=== PATIENT | male | born 1955 | race Caucasian/White ===

== ENCOUNTER → 2016-06-16 | Outpatient (CLI) | payer MEDICAID | LOC: FIMAGING 07:04 | PROVIDERS: ATTEND Internal Medicine | DX: K80.20 Calculus of gallbladder without cholecystitis without obstruction (principal); K76.0 Fatty (change of) liver, not elsewhere classified; B18.2 Chronic viral hepatitis C ==

== ENCOUNTER → 2016-06-28 | Outpatient (CLI) | payer MEDICAID | LOC: FIMAGING 10:58 | DX: S22.42XA Multiple fractures of ribs, left side, initial encounter for closed fracture (principal) ==

== ENCOUNTER 2017-01-23 03:55 | Observation (INO) | payer MEDICAID ==
[2017-01-23] MEDS ORDERED: NS 1,000 ML IV ONE ×2 (04:15→05:28)
--- NOTE | 2017-01-23 04:15 | EDPHY ---
H & P Stated Complaint: recent colonoscopy, last pm pt began having bloody stool HPI/ROS: HPI CHIEF COMPLAINT: Bright red blood per rectum, abdominal pain, also colitis HISTORY OF PRESENT ILLNESS: This patient is a 61-year-old male presents emergency room bright red blood per rectum since around 5:30 p.m. last night. Patient states that he had multiple episodes of bright red blood per rectum. Additionally some abdominal cramping but no severe pain. He has a history of ulcer colitis. Reports to me that he thinks on January 17 he had a colonoscopy with multiple polyps removed. Additionally it showed inflammation consistent also colitis and ulcers. Denies any vomiting of blood or fever. He has not had any bowel resection. Decided come the emergency room as he had persistent bright red blood per rectum. He also reports dark clots. States that He "Lost a gallon of blood" Past Medical History: Ulcerative colitis, rib fractures on the left Past Surgical History: Hernia repair, shoulder surgery Social History: Denies daily use of drugs alcohol tobacco products. 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 Exam Constitutional appears nontoxic, otherwise well, triage nursing summary reviewed, vital signs reviewed, awake/alert. Eyes normal conjunctivae and sclera, EOMI, PERRLA. HENT normal inspection, atraumatic, moist mucus membranes, no epistaxis, neck supple/ no meningismus, no raccoon eyes. Respiratory clear to auscultation bilaterally, normal breath sounds, no respiratory distress, no wheezing. Cardiovascular rate normal, regular rhythm, no murmur, no edema, distal pulses normal. Gastrointestinal soft, very mild tenderness palpation, no rebound, no guarding , normal bowel sounds, no distension, no pulsatile mass. Genitourinary no CVA tenderness. Musculoskeletal no midline vertebral tenderness, full range of motion, no calf swelling, no tenderness of extremities, no meningismus, good pulses, neurovascularly intact. Skin pink, warm, & dry, no rash, skin atraumatic. Neurologic awake, alert and oriented x 3, AAOx3, moves all 4 extremities equally, motor intact, sensory intact, CN II-XII intact, normal cerebellar, normal vision, normal speech. Psychiatric normal mood/affect. Heme/Lymph/Immune no lymphadenopathy. Differential Diagnosis: Includes but is not limited to in a particular order acute GI bleed, ulcer colitis flare, upper GI bleed, lower GI bleed, bowel perforation, fistula Medical Decision Making: Plan for this patient IV establishment, type and screen. Check CBC, labs. Type and screen. Low threshold admit for GI bleed. Re-evaluation: 0612: CT scan abdomen pelvis with IV contrast shows significant sigmoid colitis. No evidence of obstruction. No free fluid. No free air. Plan for this patient admission for GI bleed in the setting of ulcer colitis. Additionally will consult Gastroenterology. This patient is hemodynamically stable this time. Has sigmoid colitis present. Will consult Gastroenterology. His H&H are down slightly from 5 days ago. He has been typed and screen. He is not hypotensive. He is on Protonix. Will admit to the hospitalist service. GI consult. 0616: Spoke with the hospitalist service Dr. Mukherjee. She agrees to admit. 0708;AM I have consulted Dr. Alvarez Stanley with Gastroenterology. He will see the patient in consultation. 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, Hx ulcerative colitis, rib fracture, bph, hernia surg x 3, L shoulder surg - Social History Smoking Status: Former smoker Constitutional: Initial Vital Signs Heart Rate 104 H 01/23/17 04:00 Respiratory Rate 18 01/23/17 04:00 Blood Pressure 104/67 01/23/17 04:00 O2 Sat (%) 96 01/23/17 04:00 Allergies/Adverse Reactions: No Known Allergies Allergy (Verified 01/23/17 04:06) Home Medications: Medication Instructions Recorded Tamsulosin HCl [Flomax 0.4 MG (*)] 0.4 mg PO DAILY@15 12/21/15 Herbals/Supplements -Info Only 1 ea PO DAILY 01/23/17 Mesalamine 4 tab PO DAILY 01/23/17 Multivitamins [Multivitamin (*)] 1 each PO DAILY 01/23/17 predniSONE 30 mg PO DAILY 01/23/17 Medical Decision Making - Data Points Laboratory Results: Laboratory Results 01/23/17 04:30 01/23/17 04:30 Medications Given: Discontinued Medications Sodium Chloride (Ns) 1,000 mls @ 0 mls/hr IV EDNOW ONE; Wide Open PRN Reason: Protocol Stop: 01/23/17 04:16 Last Admin: 01/23/17 04:34 Dose: 1,000 mls Pantoprazole Sodium 80 mg/ (Sodium Chloride) 100 mls @ 10 mls/hr IV Q10H BEN Stop: 07/22/17 04:44 Last Admin: 01/24/17 00:17 Dose: 100 mls Sodium Chloride (Ns) 1,000 mls @ 0 mls/hr IV ONCE ONE PRN Reason: Wide Open Stop: 01/23/17 05:29 Last Admin: 01/23/17 11:06 Dose: Not Given Sodium Chloride (Ns) 1,000 mls @ 150 mls/hr IV CONT BEN Stop: 07/22/17 06:44 Last Admin: 01/24/17 02:34 Dose: 1,000 mls Lactated Ringer's (Lr) 1,000 mls @ 0 mls/hr IV ONCE ONE PRN Reason: Per Protocol Stop: 01/24/17 09:15 Last Admin: 01/24/17 10:42 Dose: 1,000 mls Lactated Ringer's (Lr) 1,000 mls @ 0 mls/hr IV ONCE ONE PRN Reason: Per Protocol Stop: 01/24/17 10:41 Last Admin: 01/24/17 10:48 Dose: Not Given Methylprednisolone Sodium Succinate (Solu-Medrol) 30 mg IVP DAILY [facility] Stop: 07/22/17 11:29 Last Admin: 01/24/17 08:40 Dose: 30 mg Pantoprazole Sodium (Protonix) 40 mg IVP EDNOW ONE Stop: 01/23/17 04:36 Last Admin: 01/23/17 04:50 Dose: 40 mg Polyethylene Glycol/Electrolytes (Gavilyte - G) 4,000 ml PO ONCE ONE Stop: 01/23/17 10:34 Last Admin: 01/23/17 11:20 Dose: Not Given Departure - Departure Disposition: [facility] In[facility] Acute Clinical Impression: Colitis GI bleed Qualifiers: GI bleed type/associated pathology: unspecified gastrointestinal hemorrhage type Qualified Code(s): K92.2 - Gastrointestinal hemorrhage, unspecified Condition: Fair
[2017-01-23] MEDS ORDERED: PANTOPRAZOLE SODIUM 40 MG VIAL IVP ONE (04:35)
[2017-01-23] MEDS ORDERED: IOPAMIDOL (ISOVUE-300) 100 ML BTL ONE ×2 (04:36→05:39)
[2017-01-23] MEDS: PANTOPRAZOLE SODIUM 80 MG in NS 100 ML IV SCH ×2 (05:09→16:07)
[2017-01-23 05:15] LABS: % IMMATURE GRANULYOCYTES 0.2 % (0.0-1.1); ABSOLUTE IMMATURE GRANULOCYTES 0.02 10^3/uL (0.00-0.10); ADD DIFF? NO; ADD MORPH? NO; ADD SCAN? NO; ATYPICAL LYMPHOCYTE FLAG 30 (0-99); FRAGMENT RBC FLAG 0 (0-99); HEMATOCRIT 32.1 % (40.0-51.0); HEMOGLOBIN 11.1 g/dL (13.7-17.5); LEFT SHIFT FLG 0 (0-99); LIPEMIA HEMOLYSIS FLAG 90 (0-99); MEAN CELL HEMOGLOBIN 32.7 pg (27.9-34.1); MEAN CELL HEMOGLOBIN CONCENTR. 34.6 g/dL (32.4-36.7); MEAN CELL VOLUME 94.7 fL (81.5-99.8); MEAN PLATELET VOLUME 9.6 fL (8.7-11.7); PLATELET CLUMPS FLAG 0 (0-99); PLATELET COUNT 247 10^3/uL (150-400); RED BLOOD CELL COUNT 3.39 10^6/uL (4.40-6.38); RED CELL DISTRIBUTION WIDTH 12.6 % (11.5-15.2)
[2017-01-23 05:23] LABS: APTT 29.3 SEC (23.0-38.0); INR 1.07 (0.83-1.16); PROTIME(PATIENT) 13.8 SEC (12.0-15.0)
[2017-01-23 05:28] LABS: ALKALINE PHOSPHATASE 50 IU/L (38-126); ANION GAP 9 mEq/L (8-16); ASPARTATE AMINOTRANSFERASE 28 IU/L (17-59); BILIRUBIN-UNCONJUGATED 0.3 mg/dL (0.0-1.1); CALCIUM 8.6 mg/dL (8.5-10.4); CARBON DIOXIDE 22 mEq/l (22-31); CHLORIDE 106 mEq/L (97-110); CREATININE 0.9 mg/dL (0.7-1.3); GLOMERULAR FILTRATION RATE > 60; GLUCOSE 118 mg/dL (70-100); POTASSIUM 3.8 mEq/L (3.5-5.2); SODIUM 137 mEq/L (134-144); TOTAL PROTEIN 5.1 g/dL (6.3-8.2)
[2017-01-23 05:29] LABS: ALANINE AMINOTRANSFERASE 43 IU/L (21-72); BILIRUBIN,TOTAL 0.3 mg/dL (0.1-1.4)
[2017-01-23] MEDS ORDERED: ONDANSETRON 4 MG/2 ML VIAL IVP PRN (06:38)
[2017-01-23] MEDS ORDERED: ACETAMINOPHEN 325 MG TAB PO PRN (06:38)
[2017-01-23] MEDS ORDERED: LORazepam 2 MG/ML INJ IVP PRN (06:38)
--- NOTE | 2017-01-23 09:30 | GHP ---
[f rep st] HISTORY AND PHYSICAL DATE OF ADMISSION: 01/23/2017 CHIEF COMPLAINT: Bright red blood per rectum. HISTORY OF PRESENT ILLNESS: A 61-year-old male with a history of ulcerative colitis who presented on 01/17/2017 for elective colonoscopy and workup of what sounds to be progressive symptoms of UC, incl uding stooling upwards of 20 times a day intermittently with bloody stools. The patient reports lynda valdovinos initiated on steroid therapy prior to the scope, having several polypectomies during the scoping an d then feeling markedly improved after the colonoscopy was performed on January 17. Said he had int ermittent bleeding afterwards which he expected based on what the transport coordinator had told him wit h the polypectomies but felt excellent. Then reports that he was exerting himself vigorously 48 hour s prior to his representation, lifting very heavy objects and working out beyond probably his normal level when he then, the evening prior to presentation developed voluminous bright red blood per rectu m. Reports that at 5:30 that evening after taking supper, passed very large bloody stool. This repe ated itself almost every 0.5 hour until approximately 10:00 p.m. At that point, the patient reports feeling dizzy and lying down to relieve his symptoms. He believes he was able to fall sleep for a sh ort period of time when he awoke at 3:00 In the morning. He had blood in his bed, stood, passed agai n a bloody stool but frequency of those stools slowed down in the early hours. They did however pers ist. He remained lightheaded and therefore presented to the emergency department for evaluation. In the ED, he reports only minimal left lower quadrant pain. Denies any nausea and vomiting at home. Reports that his last meal was dinner the evening before. Denies any headache, vision changes, dysph agia, chest pain, shortness of breath, myalgias or arthralgias. Reports that the arthralgias he had experienced previously were improved on the recent steroid therapy. PAST MEDICAL HISTORY: 1. Ulcerative colitis. 2. BPH. 3. History of traumatic left-sided rib fractures with the hemothorax status post VATS. 4. 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 SOCIAL HISTORY: Patient has a 35 year pack history of smoking. Quit 8 months ago for the 3rd time. Denies alcohol, illicit drugs or marijuana. FAMILY HISTORY: Has a sister whom he believes has irritable bowel syndrome. ADVANCED DIRECTIVES: He is full cor, full tube. REVIEW OF SYSTEMS: A 10-point review of systems is negative with the exception of that reported in t he HPI. PHYSICAL EXAMINATION: VITAL SIGNS: Blood pressure 104/67, heart rate 104, respiratory rate 18, satu rating 96% on room air, 36.7. GENERAL: This is a healthy-appearing, middle-aged male in no acute di stress. HEENT: Notable for dry mucous membranes. Eye: Negative for any icterus. CARDIAC: Patient is regular rate and rhythm. PULMONARY: Clear to auscultation bilaterally. GASTROINTESTINAL: The abdomen is mildly distended. Positive bowel sounds. He is soft has minimal pain to palpation in the left lower quadrant. No rebound or guarding. MUSCULOSKELETAL: Negative for any lower extremity ed aurelia. SKIN: Negative for any rashes. NEUROLOGIC: He is alert and oriented x3. PSYCHIATRIC: He is pleasant and cooperative on interview and examination. DATA: White count 10.3, hematocrit 32.1, platelets of 247. Lactic acid 2.7, creatinine 0.9. CT of the abdomen, which I personally reviewed and interpreted. Official radiology interpretation pending. Shows no signs of obstruction or free air. ASSESSMENT AND PLAN: This is a 61-year-old male, presenting with bright red blood per rectum. 1. Acute lower gastrointestinal bleed. Based on the description and timing I suspect this may have more to do with his recent instrumentation then an ulcerative colitis flare, as it sounds like his sy stemic symptoms of ulcerative colitis have been markedly improved on his steroid therapy. The patien t is describing symptoms from blood loss including lightheadedness, dizziness. We will admit the pat ient for observation. Follow serial H and H and contact Gastroenterology to discuss options for scop ing and hemostasis. We will keep the patient n.p.o. until these decisions are made. Supplement with IV fluids. 2. Systemic inflammatory response syndrome. Patient is tachycardic with an elevated white count. I suspect his symptoms are related to acute blood loss and not infection. As above, we will aggressiv [place] fluid resuscitate and tract the patient's H and H. Discussed with Gastroenterology plan for his lower gastrointestinal bleed. 3. Benign prostatic hypertrophy. We will hold the patient's tamsulosin in the setting of acute abebe rointestinal bleed. 4. Ulcerative colitis. We will continue patient's medications as I believe he has had good symptom control. Can discuss this with Gastroenterology again moving forward. PROPHYLAXIS: Holding heparin in the setting of acute gastrointestinal bleed. DIET: N.p.o. until plan is made with Gastroenterology. DISPOSITION: I expect in less than 2 midnights, if the patient undergoes appropriate diagnostic work up and stabilizes. I have discussed the case with the emergency room physician as well as Dr. Vera eastman on-call for Gastroenterology. He will consult today and assist in the plan for lower gastrointesti nal bleed. /[id number]/MODL
[2017-01-23] MEDS ORDERED: PEG 3350/NA SULF,BICARB,CL/KCL (GAVILYTE-G) 4000 ML BTL PO ONE (10:33)
[2017-01-23] MEDS: methylPREDNISolone SOD SUCC 40 MG/ML VIAL IVP SCH (11:58)
--- NOTE | 2017-01-23 11:59 | GCON ---
[f rep st] CONSULTATION CHIEF COMPLAINT: GI bleed. HISTORY OF PRESENT ILLNESS: This is a 61-year-old gentleman with a history of ulcerative colitis who I have been asked to see in consultation by Dr. Kwok for GI bleeding. This 61-year-old gentleman has a long-standing history of ulcerative colitis. He has been seen in our practice. He underwent a colonoscopy on January 17, 2017. He had been started on prednisone 40 mg a day and also Lialda 4 tabs daily. On colonoscopy he was found to have a left-sided ulcerative colitis. He had a normal-ap pearing colon above the descending colon to the cecum. He did have a descending colon polyp that was large and pedunculated. It was hot snare excised. He had actually been having improvement of his s ymptoms on a steroid taper as well as Lialda. He had been doing a lot of activity with heavy lifting . This morning he had an episode of a large amount of bright red blood. He also had some associated lightheadedness. He did present to the emergency department and was hemodynamically stable. I was asked to see the patient for further evaluation. PAST MEDICAL HISTORY: Remarkable ulcerative colitis, BPH, history of traumatic left rib fracture sta tus post hemothorax. History of anaphylaxis to bee stings. History of hepatitis C status post treat ment with eradication of hepatitis C. SOCIAL HISTORY: Patient has a 35 pack smoking history, quit 8 months ago. Does not drink alcohol or use illicit drugs. FAMILY HISTORY: Remarkable for irritable bowel syndrome, otherwise negative as it pertains to chief complaint. REVIEW OF SYSTEMS: Negative for 10 systems other than mentioned in HPI. PHYSICAL EXAMINATION: VITAL SIGNS: Blood pressure 104/67, heart rate 74, respiratory rate 18, 96% s at. GENERAL: A very pleasant, somewhat agitated gentleman in no acute distress. HEENT: Normocepha lic, atraumatic. EOMI. Mucous membranes moist. NECK: Supple. No cervical adenopathy. No thyrome joshua. CARDIAC: Normal S1, S2 without murmur. ABDOMEN: Benign. No hepatosplenomegaly, nontender. EXTREMITIES: Without clubbing, cyanosis, edema. SKIN: Warm, dry. NEURO: Nonfocal. PSYCHIATRIC: Alert and oriented x3. Normal affect, somewhat irritable. LABORATORY DATA: White count of 10.3, hematocrit 32.2, platelets 247. ASSESSMENT: A 61-year-old gentleman with a history of ulcerative colitis and recent polypectomy. I suspect patient with post polypectomy bleed. RECOMMENDATIONS: Continue on treatment for his prednisone. Can either start on p.o. prednisone or I V Solu-Medrol. Continue on Lialda 4 tabs a day, serial H and H, transfuse if hematocrit less than 25 %. We will prep with 2-4 L of GoLYTELY. If any signs and symptoms of continued bleeding we will pro ceed with colonoscopy for evaluation of polypectomy site in the descending colon for potential interv ention, clipping/cautery. We will follow with you. /[id number]/MODL
--- NOTE | 2017-01-23 14:42 | ASMTCASEMG ---
Living Arrangements What is your living Answers: Alone arrangement? Who do you live with? Type Of Residence What kind of residence do Answers: House you live in? Discharge Plan Comments Coordination Status Comments Notes: Pt is a 61 y/o man admitted for UC, including stooling of 20x a day intermittently with bloody stools. Anticipates that pt will discharge independent when medically ready. No therapies ordered at this time. CM available for d/c needs. Date Signed: 01/23/2017 02:41 PM Electronically Signed By:GISSELL Patino
[2017-01-23 17:57] LABS: COLOR YELLOW; LEUKOCYTE ESTERASE,URINE NEGATIVE (NEGATIVE); NITRITE,URINE NEGATIVE (NEGATIVE)
[2017-01-23] MEDS: NS 1,000 ML IV SCH (20:13)
[2017-01-24] MEDS: PANTOPRAZOLE SODIUM 80 MG in NS 100 ML IV SCH (00:17)
[2017-01-24] MEDS: NS 1,000 ML IV SCH (02:34)
[2017-01-24 05:34] LABS: % IMMATURE GRANULYOCYTES 0.3 % (0.0-1.1); ABSOLUTE IMMATURE GRANULOCYTES 0.03 10^3/uL (0.00-0.10); ADD DIFF? NO; ADD MORPH? NO; ADD SCAN? NO; ATYPICAL LYMPHOCYTE FLAG 30 (0-99); FRAGMENT RBC FLAG 0 (0-99); HEMATOCRIT 30.2 % (40.0-51.0); HEMOGLOBIN 10.1 g/dL (13.7-17.5); LEFT SHIFT FLG 0 (0-99); LIPEMIA HEMOLYSIS FLAG 80 (0-99); MEAN CELL HEMOGLOBIN 32.2 pg (27.9-34.1); MEAN CELL HEMOGLOBIN CONCENTR. 33.4 g/dL (32.4-36.7); MEAN CELL VOLUME 96.2 fL (81.5-99.8); MEAN PLATELET VOLUME 10.2 fL (8.7-11.7); PLATELET CLUMPS FLAG 10 (0-99); PLATELET COUNT 236 10^3/uL (150-400); RED BLOOD CELL COUNT 3.14 10^6/uL (4.40-6.38)
[2017-01-24 05:41] LABS: ALANINE AMINOTRANSFERASE 42 IU/L (21-72); ALKALINE PHOSPHATASE 51 IU/L (38-126); ANION GAP 10 mEq/L (8-16); ASPARTATE AMINOTRANSFERASE 30 IU/L (17-59); BILIRUBIN,TOTAL 0.4 mg/dL (0.1-1.4); CALCIUM 8.2 mg/dL (8.5-10.4); CARBON DIOXIDE 24 mEq/l (22-31); CHLORIDE 110 mEq/L (97-110); CREATININE 0.8 mg/dL (0.7-1.3); GLOMERULAR FILTRATION RATE > 60; GLUCOSE 82 mg/dL (70-100); POTASSIUM 3.9 mEq/L (3.5-5.2); SODIUM 144 mEq/L (134-144); TOTAL PROTEIN 5.4 g/dL (6.3-8.2)
[2017-01-24] MEDS: methylPREDNISolone SOD SUCC 40 MG/ML VIAL IVP SCH (08:40)
[2017-01-24] MEDS ORDERED: LR 1,000 ML IV ONE ×2 (09:14→10:40)
[2017-01-24 10:40] VITALS: PULSE 69
--- NOTE | 2017-01-24 10:42 | PDANEPAE ---
ANE History of Present Illness 61 year old inpatient with PMHx of Ulcerative Colitis presents for colonoscopy. ANE Past Medical History - Cardiovascular History Hx Hypertension: No Hx Arrhythmias: No Hx Chest Pain: No Hx Coronary Artery / Peripheral Vascular Disease: No Hx CHF / Valvular Disease: No Hx Palpitations: No - Pulmonary History Hx COPD: No Hx Asthma/Reactive Airway Disease: No Hx Recent Upper Respiratory Infection: No Hx Oxygen in Use at Home: No Hx Sleep Apnea: No Sleep Apnea Screening Result - Last Documented: Negative - Neurologic History Hx Cerebrovascular Accident: No Hx Seizures: No Hx Dementia: No Neurologic History Comment: laceration on scalp after fall off [id number]. disorriented few days . okay now. - Endocrine History Hx Diabetes: No Hypothyroid: No Hyperthyroid: No Obesity: no - Renal History Hx Renal Disorders: Yes Renal History Comment: on Flomax - Liver History Hx Hepatic Disorders: Yes Hepatic History Comment: Hep C (age 11 blood transfusion) - Neurological & Psychiatric Hx Hx Neurological and Psychiatric Disorders: No - Cancer History Hx Cancer: No - Congenital Disorder History Hx Congenital Disorders: No - GI History Hx Gastrointestinal Disorders: No - Other Health History Other Health History: 12-21-15 fell off ladder, broke 6 ribs and sustained hemopneuothorax. - Chronic Pain History Chronic Pain: No - Surgical History Prior Surgeries: 3 inguinal hernia repairs -15 years or more ago;L shoulder scope 2009. ANE Review of Systems Review of systems is: negative Review of Systems: - Exercise capacity Exercise capacity: >=4 METS ANE Patient History - Allergies Allergies/Adverse Reactions: No Known Allergies Allergy (Verified 01/23/17 04:06) - Home Medications Home medications: home medication list seen and reviewed Home Medications: RX: Tamsulosin HCl [Flomax 0.4 MG (*)] 0.4 mg PO DAILY@15 12/21/15 [Last Taken 01/22/17] Multivitamins [Multivitamin (*)] 1 each PO DAILY 01/23/17 [Last Taken Unknown] RX: Herbals/Supplements -Info Only 1 ea PO DAILY 01/23/17 [Last Taken Unknown] RX: Mesalamine 4 tab PO DAILY 01/23/17 [Last Taken 01/22/17] predniSONE [predniSONE] 30 mg PO DAILY 01/23/17 [Last Taken 01/22/17] - NPO status NPO Status: no food or drink >8 hours NPO Since - Liquids (Date): 01/24/17 NPO Since - Liquids (Time): 00:00 NPO Since - Solids (Date): 01/24/17 NPO Since - Solids (Time): 00:00 - Anes Hx Anes Hx: no prior problems - Smoking Hx Smoking Status: Former smoker - Alcohol Use Alcohol Use: Rarely - Family Anes Hx Family Anes Hx: neg - N/A ANE Labs/Vital Signs - Labs Result Diagrams: 01/24/17 04:24 01/24/17 04:24 - Vital Signs Vital Signs: reviewed preoperatively; see RN documention for details Blood Pressure: 112/64 Heart Rate: 69 Respiratory Rate: 16 O2 Sat (%): 94 Height: 181.61 cm Weight: 68 kg ANE Physical Exam - Airway Neck exam: FROM Mallampati Score: Class 2 Mouth exam: avalos - Pulmonary Pulmonary: no respiratory distress - Cardiovascular Cardiovascular: regular rate and rhythym - ASA Status ASA Status: II ANE Anesthesia Plan Anesthesia Plan: GA with mask Total IV Anesthesia: Yes
[2017-01-24] MEDS ORDERED: PROPOFOL/EMULSION 500 MG/50 ML BOTTLE IV ONE (10:56)
[2017-01-24] MEDS ORDERED: LR 500 ML IV PRN (11:08)
[2017-01-24] MEDS ORDERED: ONDANSETRON 4 MG/2 ML VIAL IVP PRN (11:08)
[2017-01-24] MEDS ORDERED: PHENYLEPHRINE HCL 100 MCG/ML SYR ONE (11:08)
[2017-01-24] MEDS ORDERED: fentaNYL 100 MCG/2 ML INJ IVP PRN (11:08)
[2017-01-24] MEDS ORDERED: NALOXONE HCL 0.4 MG/ML INJ IVP PRN (11:08)
--- NOTE | 2017-01-24 11:21 | GIREPORT ---
[facility] - Endoscopy Department Patient Name: Raul Linda Procedure Date: 01/24/2017 10:59 AM Patient Type: Inpatient Attending MD/ ER Physician: Alvarez Stanley MD Procedure: Colonoscopy Indications: Hematochezia Providers: Alvarez Stanley MD Medicines: Sedation Required Anesthesia Staff Assistance Complications: No immediate complications. Description of Procedure: After obtaining informed consent, the scope was passed under direct vis ion. Throughout the procedure, the patient's blood pressure, pulse, and oxyg en saturations were monitored continuously. The Colonoscope with irrigatio n channel was introduced through the anus and advanced to the cecum, identified by appendiceal orifice and ileocecal valve. The colonoscopy was performed without difficulty. The patient tolerated the procedure well. The quality of the bowel preparation was good. The appendiceal orifice and the rectum were photographed. Findings: A diffuse area of mildly congested, erythematous, granular and scwjysif-azetpbb-rdyxblndz mucosa was found from rectum to sigmoid colo n. A tattoo was seen in the descending colon. A post-polypectomy scar was found at the tattoo site. No stigmata of bleeding. No intervention required. The exam was otherwise without abnormality on direct and retroflexion v iews. Estimated Blood Loss: Estimated blood loss: none. Post Op Diagnosis: - Congested, erythematous, granular and xgbtiuio-cqyymgg-ztpvceosm muco sa from rectum to sigmoid colon. - A tattoo was seen in the descending colon. A post-polypectomy scar wa s found at the tattoo site. - The examination was otherwise normal on direct and retroflexion views . - No specimens collected. Recommendation: - Resume regular diet. - Ok for discharge home. - Follow up with Dr. Briones, GI as an outpatient. - Thank you for allowing me to participate in the care of your patient. Attending Participation: I personally performed the entire procedure. Alvarez Stanley MD Alvarez Stanley MD 01/24/2017 11:21:20 AM This report has been signed electronicallyStevadams Stanley MD Number of Addenda: 0 Note Initiated On: 01/24/2017 10:59 AM Total Procedure Duration Time 0 hours 5 minutes 2 seconds [email or web address]
[2017-01-24 11:57] VITALS: O2SAT 96
[2017-01-24 12:14] VITALS: BP 142/80; RESP 16; TEMP 97.6
--- NOTE | 2017-01-24 13:04 | POSTANESTH ---
Post Anesthetic Evaluation Cardiovascular Status: Normal, Stable, Similar to Pre-Op Cond Respiratory Status: Normal, Stable, Similar to Pre-op Cond. Level of Consciousness/Mental Status: Can Participate in Eval, Alert and Oriented Pain Control: Adequate, Prn Tx Ordered Nausea/Vomiting Control: Adequate, Prn Tx Ordered Complications Possibly Related to Anesthesia: None Noted
--- NOTE | 2017-01-24 15:11 | ASDISCHSUM ---
Discharge Information Plan Status:Home with No Needs Medically Cleared to Leave:01/23/2017 Discharge Date:01/24/2017 01:18 PM CM D/C Disposition: ADT D/C Disposition:Home, Routine, Self-Care Projected Discharge Date:01/24/2017 12:00 AM Transportation at D/C: Discharge Delay Reason: Follow-Up Date:01/24/2017 12:00 AM Discharge Slot: Final Diagnosis: Placement Information Patient Contact Information Contact Name:JUVENCIO Relationship:Sister Address: City:[facility] Phone: [facility] Code:RHEA Email: Financial Information Financial Class: Primary Plan Desc:MEDICAID [facility] [employer] Primary Plan Number:[id number] Secondary Plan Desc: Secondary Plan Number: Assessment Information [facility] Initial CM Assessment Living Arrangements What is your living Answers: Alone arrangement? Who do you live with? Type Of Residence What kind of residence do Answers: House you live in? Discharge Plan Comments Coordination Status Comments Notes: Pt is a 61 y/o man admitted for UC, including stooling of 20x a day intermittently with bloody stools. Anticipates that pt will discharge independent when medically ready. No therapies ordered at this time. CM available for d/c needs. Date Signed: 01/23/2017 02:41 PM Electronically Signed By:GISSELL Patino Intervention Information
--- NOTE | 2017-01-24 20:07 | GDS ---
[f rep st] DISCHARGE SUMMARY DISCHARGE DIAGNOSES: 1. Acute lower gastrointestinal bleed thought secondary to polypectomy. 2. Anemia secondary to acute blood loss. 3. Ulcerative colitis. 4. Benign prostatic hypertrophy. HISTORY OF PRESENT ILLNESS: A 61-year-old male with ulcerative colitis, initiated on steroid therapy mesalamine recently, underwent colonoscopy on 01/17/2017 who presents with acute bright red blood pe r rectum. For details of the patient's initial presentation, please see the history and physical farooq ed 01/23/2017. CONSULTATIVE SERVICES: Gastroenterology. PROCEDURES: On 01/24/2017, the patient underwent colonoscopy. Examination was normal. There were p ost polypectomy scars identified, none of which had stigmata of acute bleeding. HOSPITAL COURSE: By issue. 1. Acute lower gastrointestinal bleed. The patient was admitted, fluid resuscitated, kept n.p.o. in prep for colonoscopy. His H and H stabilized out at 10 overnight. Colonoscopy ruled out any acute areas of bleeding from visualized polypectomy scars. The patient was re-initiated on oral intake, an d is being discharged on his chronic medications for ulcerative colitis. The patient is to follow wi th his outpatient provider, Dr. Anguiano, for ongoing GI management of his ulcerative colitis. 2. Anemia secondary to acute blood loss. The patient's hemodynamics remain stable. Hemoglobin is 1 0 on the day of disposition. Again, he will be followed in the outpatient setting. MEDICATIONS AT THE TIME OF DISCHARGE: Please reference med rec printed on 01/24/2017. FOLLOWUP APPOINTMENTS: Include with his outpatient managed care nurse in the next 2-4 weeks. PENDING STUDIES: None. I spent greater than 30 minutes in the planning and coordination of this discharge. /[id number]/MODL
== END 2017-01-24 13:18 | disposition home or self-care (01) ==
LOC: F3E 07:48
PROVIDERS: ADMIT Family Medicine; ATTEND Hospitalist
PROC: 0DJD8ZZ Inspection of Lower Intestinal Tract, Via Natural or Artificial Opening Endoscopic (ICD-10-PCS; principal; 2017-01-24 11:15)
DX: K91.840 Postprocedural hemorrhage of a digestive system organ or structure following a digestive system procedure (principal); D62 Acute posthemorrhagic anemia; K51.30 Ulcerative (chronic) rectosigmoiditis without complications; N40.0 Benign prostatic hyperplasia without lower urinary tract symptoms; Z87.891 Personal history of nicotine dependence
CPT/HCPCS: 45378; 74177; G0378; 96374; J2370; J2704; J2920; Q9967

== ENCOUNTER → 2017-02-01 | Outpatient (CLI) | payer MEDICAID | LOC: FIMAGING 07:40 | PROVIDERS: ATTEND Internal Medicine | DX: K74.0 Hepatic fibrosis (principal); K76.0 Fatty (change of) liver, not elsewhere classified; K80.20 Calculus of gallbladder without cholecystitis without obstruction; B19.20 Unspecified viral hepatitis C without hepatic coma ==

== ENCOUNTER 2017-07-28 13:48 | Emergency (ER) | payer MEDICAID ==
--- NOTE | 2017-07-28 15:16 | CPEKG ---
Heart Rate: 82 RR Interval: 732 P-R Interval: 156 QRSD Interval: 86 QT Interval: 364 QTC Interval: 425 P Pollock: 73 QRS Pollock: 35 T Wave Pollock: 62 EKG Severity - OTHERWISE NORMAL ECG - EKG Impression: SINUS RHYTHM EKG Impression: ATRIAL PREMATURE COMPLEX Electronically Signed By: Yeimy La 28-Jul-2017 20:44:57
[2017-07-28] MEDS ORDERED: AZITHROMYCIN IV 500 MG in D5W 250 ML IV ONE (16:10)
[2017-07-28] MEDS ORDERED: ACETAMINOPHEN 500 MG TAB ONE (16:28)
[2017-07-28] MEDS ORDERED: IPRATROPIUM/ALBUTEROL 3 ML DEYVIAL IH ONE (16:46)
[2017-07-28 17:02] LABS: PLATELET COUNT 133 10^3/uL (150-400)
[2017-07-28] MEDS ORDERED: NS 1,000 ML IV ONE (17:33)
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
[2017-07-28 19:40] VITALS: BP 103/67
== END 2017-07-28 19:39 | disposition home or self-care (01) ==
DX: J18.9 Pneumonia, unspecified organism (principal); F17.200 Nicotine dependence, unspecified, uncomplicated; E86.9 Volume depletion, unspecified
CPT/HCPCS: 96365; J0456; J0696